=== PATIENT | male | born 1935 | race Caucasian/White ===

== ENCOUNTER 2016-12-15 09:03 | Emergency (ER) | payer MEDICARE ==
[~2016-12-15] VITALS: Ht 172.7 cm; Wt 90.9 kg
[2016-12-15] MEDS ORDERED: MULT-71 PO (09:28)
[2016-12-15] MEDS ORDERED: AREDS 2 PO (09:28)
[2016-12-15] MEDS ORDERED: CARB-38 PO (09:28)
[2016-12-15] MEDS ORDERED: ROPI5TAB2 PO (09:28)
[2016-12-15] MEDS ORDERED: LEVO100 PO (09:28)
[2016-12-15] MEDS ORDERED: ASPI81TA84 PO (09:28)
[2016-12-15] MEDS ORDERED: FISH OIL PO (09:28)
[2016-12-15] MEDS ORDERED: AZIT250T6 PO (09:31)
[2016-12-15] MEDS ORDERED: ALBU8HFA IH (09:31)
[2016-12-15] MEDS ORDERED: [UNRECOGNIZED DRUG - REMARK] PO (09:31)
[2016-12-15] MEDS ORDERED: ALBUTEROL SULFATE 2.5 MG/0.5 ML NEB SOLUTION NEB ONE (09:45)
[2016-12-15] MEDS ORDERED: IPRATROPIUM BROMIDE 0.5 MG/2.5 ML NEB SOLUTION NEB ONE (09:45)
[2016-12-15 10:01] LABS: BASOPHILS % (AUTO) 0.3 % (0.0-2.0); EOSINOPHILS % (AUTO) 2.8 % (1.0-6.0); HEMATOCRIT 46.1 % (41-53); HEMOGLOBIN 15.3 g/dL (13.5-17.5); LYMPHOCYTES # (AUTO) 2.9 K/uL (1.0-4.8); LYMPHOCYTES % (AUTO) 34.9 % (22.0-44.0); MEAN CORPUSCULAR HEMOGLOBIN 30.1 pg (26.0-34.0); MEAN CORPUSCULAR HGB CONC 33.2 G/dL (31.0-37.0); MEAN CORPUSCULAR VOLUME 91 fL (80-100); MONOCYTES # (AUTO) 0.5 K/uL (0.1-1.0); MONOCYTES % (AUTO) 5.7 % (2.0-9.0); NEUTROPHILS # (AUTO) 4.6 K/uL (1.8-7.7); NEUTROPHILS % (AUTO) 56.3 % (40.0-70.0); PLATELET COUNT (AUTO) 137 K/uL (150-450); RED BLOOD CELL COUNT(AUTO) 5.08 MIL/uL (4.50-5.90); RED CELL DISTRIBUTION WIDTH 13.7 % (11.5-14.5); WHITE BLOOD COUNT (AUTO) 8.2 K/uL (4.5-11.0)
[2016-12-15 10:10] LABS: PROTHROMBIN TIME 10.8 SEC (9.4-11.6)
[2016-12-15 10:11] LABS: ANION GAP 6 mmol/L (8-16); CALCIUM, TOTAL 8.7 mg/dL (8.8-10.5); CARBON DIOXIDE 30 mmol/L (22-29); CHLORIDE 103 mmol/L (98-107); CREATININE 1.01 mg/dL (0.60-1.30); GLOMERULAR FILTR. RATE CALC > 60 mL/min (>60); SODIUM SERUM 139 mmol/L (136-145); UREA NITROGEN, BLOOD 17 mg/dL (7-18)
[2016-12-15 10:36] LABS: ALANINE AMINOTRANSFERASE 16 U/L (12-78); ALBUMIN 4.1 g/dL (3.4-5.0); ASPARTATE AMINOTRANSFERASE 25 U/L (15-37); BILIRUBIN,TOTAL 0.8 mg/dL (0.1-1.0); CREATINE KINASE MB 1.6 ng/mL (0-5); CREATINE KINASE, TOTAL 112 U/L (39-308); TOTAL PROTEIN, SERUM 7.5 g/dL (6.4-8.2)
[2016-12-15] MEDS ORDERED: PredniSONE 20 MG TABLET PO ONE (11:00)
[2016-12-15 12:02] VITALS: BP 151/71
== END 2016-12-15 12:19 | disposition home or self-care (01) ==
LOC: EMS 09:04
DX: J40 Bronchitis, not specified as acute or chronic (principal); Z88.0 Allergy status to penicillin; Z86.73 Personal history of transient ischemic attack (TIA), and cerebral infarction without residual deficits
CPT/HCPCS: 36415; 70450; 71010; 80053; 82550; 82553; 84484; 85025; 85610; 93005; 93041; 94060; 94640; 99291; J7512